=== PATIENT | female | born 1950 | race Caucasian/White ===

== ENCOUNTER → 2016-10-16 | Outpatient (CLI) | payer MEDICARE, OTHER ==
[~2016-10-16] MED LIST: DELTASONE DPS10 MG PO; DELTASONE DPS20 MG PO; FLAGYL-DPS500 MG PO; KLOR-CON M2020 ME1 PO; LEVAQUIN DPS500 MG PO; LIDODERM PATC1 PATCH TP; MAXZIDE-25 DPS1 TAB PO; MEGARED OMEGA-1 EAC1 PO; MONTELUKAST SOD10 MG PO; MUCINEX600 MG PO; NEURONTIN DPS300 MG PO; ORGAN-I NR200 MG PO; PEPCID DPS20 MG PO; PRAVACHOL10 MG PO; PRILOSEC DPS20 MG PO; PROAIR HFA8.5 GM IH; THERA1 EACH PO; TYLENOL DPS325 MG PO; ZEBETA5 MG PO; ZESTRIL DPS10 MG PO; ZITHROMAX250 MG PO
== END | disposition home or self-care (01) ==
LOC: RESC 10-08 15:25
DX: R06.02 Shortness of breath (principal); R94.2 Abnormal results of pulmonary function studies